=== PATIENT | female | born 1965 | race African-American/Black ===

== ENCOUNTER 2020-10-15 12:14 | Emergency (ER) | payer OTHER, MEDICAID ==
[~2020-10-15] VITALS: Ht 170.2 cm; Wt 72.6 kg
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
[~2020-10-15 12:14] MED LIST: ANALGESIC325 MG PO; AZOR 5-20 MG T1 EACH PO; AZOR 5-40 MG T1 EACH PO; ESTRADIOL 1 MG T1 MG PO; NORCO 5-325 TA1 EACH PO
[2020-10-15] MEDS ORDERED: JANUMET XR 50-1 EAC1 PO (12:24)
[2020-10-15] MEDS ORDERED: LISINOPRIL20 MG PO (12:25)
[2020-10-15] MEDS ORDERED: LIPITOR 20 MG T20 M1 PO (12:26)
[2020-10-15] MEDS ORDERED: ZOLOFT50 M1 PO (12:26)
[2020-10-15 12:50] LABS: ABSOLUTE LYMPHOCYTES 1.3 thou/uL (0.8-5.3); ABSOLUTE MONOCYTES 0.4 thou/uL (0.0-1.2); BASOPHILS 1.2 %; EOSINOPHILS 0.4 %; HEMATOCRIT 43.3 % (37.0-47.0); HEMOGLOBIN 14.5 gm/dL (12.0-15.0); LYMPHOCYTES 34.6 %; MCHC 33.5 g/dL (28.0-37.0); MCV 98.8 fL (80.0-100.0); MPV 7.4 fl. (7.2-11.1); NUCLEATED RBCS 0 /100WBC; PLATELET COUNT* 210 thou/uL (150-400); POLYS 53.8 %; RBC 4.39 mil/uL (4.20-5.00); RDW-CV 13.7 % (10.5-14.5); WBC 3.7 thou/uL (4.0-11.0)
[2020-10-15 13:04] LABS: POTASSIUM 3.5 mmol/L (3.5-5.1)
[2020-10-15 13:09] LABS: ALBUMIN 3.3 g/dL (3.4-5.0); TOTAL BILIRUBIN 0.2 mg/dL (<0.1-1.0); TOTAL PROTEIN 7.6 g/dL (6.4-8.2)
[2020-10-15] MEDS ORDERED: DEXAMETHASONE 44 M1 PO (13:26)
[2020-10-15] MEDS ORDERED: ZPAK PO (13:26)
[2020-10-15 13:35] VITALS: BP 113/74
--- NOTE | 2020-10-16 10:03 | EKG ---
[place] [address] ELECTROCARDIOGRAM REPORT Name: KAYLA CHAMPAGNE Room: [facility]#: [id number] Admission: 10/15/20 Attend Phys: Discharge: 10/15/20 Date of : 65 Date of Service: 10/15/20 1223 Report #: [id number] THIS REPORT FOR: //name// [facility] ED Test Date: 2020-10-15 Test Time: 12:23:55 Pat Name: KAYLA CHAMPAGNE Department: Room: Gender: [employer] Teacher: : 1965 Requested By: Jamie Forrest Order Number: [id number] Betzaida MD: Anastacio Bucio Measurements Intervals [place] Rate: 71 P: 72 MA: 128 QRS: 45 QRSD: 105 T: 54 QT: 408 QTc: 444 Interpretive Statements Sinus rhythm Consider right atrial enlargement Borderline T wave abnormalities No previous ECG available for comparison Electronically Signed On 10-16-2020 10:02:51 CDT by Anastacio Bucio [email or web address] <ELECTRONICALLY SIGNED> By: Anastacio Bucio MD, [facility] 10/16/20 [facility] 1223 1223 Anastacio Bucio MD, [facility] /EPI
== END 2020-10-15 13:35 | disposition home or self-care (01) ==
LOC: M.ERS 12:14
PROVIDERS: Family Medicine
DX: U07.1 COVID-19 (principal); I10 Essential (primary) hypertension; E11.9 Type 2 diabetes mellitus without complications; Z90.710 Acquired absence of both cervix and uterus; Z79.899 Other long term (current) drug therapy